=== PATIENT | male | born 1965 | race African-American/Black ===

== ENCOUNTER → 2016-06-26 | Day surgery (SDC) | payer OTHER ==
[~2016-06-26] MED LIST: AMLODIPINE BESYL5 MG PO; ATENOLOL PO; BUSPIRONE HCL10 MG PO; CARVEDILOL25 MG PO; COZAAR100 MG PO; DESYREL50 MG DOB; HCTZ PO; METOPROLOL SUCC50 MG PO; PHENERGAN DM1 ML PO; ZITHROMAX PO
--- NOTE | ~2016-06-26 | OR ---
Unit #: [id number] #: [id number] Patient: ABENA OAKES [id number] [address] [place], [place] [address] [id number] MR#: [id number] NAME: ABENA OAKES. ROOM: Date of Procedure: 06/26/2016 Admission Date: 06/26/2016 Surgeon: Augusto Khan M.D. : 1965 Attending Physician: Augusto Khan M.D. Referring Physician: Augusto Khan M.D. Primary Care Physician: Tahira Hazel M.D. OPERATIVE REPORT PREOPERATIVE DIAGNOSIS Colorectal cancer screening in an average-risk patient. PROCEDURES PERFORMED Colonoscopy and polypectomy, colonoscopy and biopsies. POSTOPERATIVE DIAGNOSES 1. The patient had two sessile polyps. The first one was a diminutive polyp in the ascending colon, which was removed using cold biopsy forceps. A second polyp was 8 mm polyp in the proximal transverse colon and it was removed using snare polypectomy. 2. The patient also had sigmoid and descending colon mild diverticulosis. 3. Rest of the examination up to cecum and terminal ileum was normal. The quality of the prep was excellent. RECOMMENDATIONS 1. Repeat colonoscopy in 5 years. 2. Follow up the results of polyp histology. SEDATION USED MAC. DESCRIPTION OF PROCEDURE Following detailed explanation of potential risks and complications of a colonoscopy, namely perforation, bleeding, and complication related to sedation, the patient was brought to GI lab and laid in the left lateral decubitus position. A digital rectal examination was performed, which was normal. Lubricated tip of the Olympus video colonoscope was inserted through the anus and advanced under direct vision. The scope was advanced past rectosigmoid into descending colon. Multiple small to medium-sized diverticula were noted in this area. The scope tip was then navigated all the way up to cecum with visualization of the ileocecal valve and the appendiceal orifice. Preparation was excellent with good visualization and photodocumentation was obtained. Last several inches of the terminal ileum were also visualized after intubation of the ileocecal valve and appeared normal. Successive segments of the colonic mucosa were examined upon withdrawal and the patient was found a diminutive polyp in the proximal ascending colon about 4 mm in size. It was removed using cold biopsy forceps. A second polyp about 8 mm in size was seen in the proximal transverse colon and was removed using snare polypectomy. Both the polyps were removed, retrieved, and sent for histology. Excellent hemostasis was achieved and photodocumentation was obtained. No Unit #: [id number] #: [id number] Patient: ABENA OAKES additional polyps were noted. The patient was also found to have left-sided scant diverticula. No hemorrhoids were noted at the anal verge. The scope was then withdrawn. The patient returned to the recovery area. He tolerated the procedure without any postprocedure complications. Dictated by... Moon Isaacs/gaston TD: 06/26/2016 23:48 JOB #: [id number] OPERATIVE REPORT Page 1 of 1 X Augusto Khan MD X PROCEDURE OPERATIVE NOTE
== END | disposition home or self-care (01) ==
LOC: COPS 10:03
PROVIDERS: Internal Medicine Gastroenterology
PROC: 0DBK8ZX Excision of Ascending Colon, Via Natural or Artificial Opening Endoscopic, Diagnostic (ICD-10-PCS; principal; 2016-06-26 13:00)
PROC: 0DBL8ZX Excision of Transverse Colon, Via Natural or Artificial Opening Endoscopic, Diagnostic (ICD-10-PCS; 2016-06-26 13:00)
DX: Z12.11 Encounter for screening for malignant neoplasm of colon (principal); D12.2 Benign neoplasm of ascending colon; D12.3 Benign neoplasm of transverse colon; K57.30 Diverticulosis of large intestine without perforation or abscess without bleeding; I51.7 Cardiomegaly; Z79.899 Other long term (current) drug therapy; J45.909 Unspecified asthma, uncomplicated; Z87.891 Personal history of nicotine dependence; Z87.09 Personal history of other diseases of the respiratory system
CPT/HCPCS: 82947; 88305; J2250